=== PATIENT | female | born 1990 | race Caucasian/White ===

== ENCOUNTER 2018-08-14 20:11 | Emergency (ER) | payer SELFPAY ==
[~2018-08-14] VITALS: Ht 165.1 cm; Wt 67.0 kg
[2018-08-14 20:30] VITALS: BP 112/66
== END 2018-08-14 20:46 | disposition left against medical advice (07) ==
LOC: ER 20:11
DX: R51 Headache (principal); Z53.21 Procedure and treatment not carried out due to patient leaving prior to being seen by health care provider